=== PATIENT | male | born 1990 | race Hispanic/Latino ===

== ENCOUNTER 2022-10-27 12:33 | Emergency (ER) | payer BC, SELFPAY ==
[2022-10-27] MEDS ORDERED: predniSONE 20 MG TAB ONE (13:02)
== END 2022-10-27 13:06 | disposition home or self-care (01) ==
LOC: BURERS 12:33
DX: G51.0 Bell's palsy (principal); I10 Essential (primary) hypertension
CPT/HCPCS: 99283; J7512